=== PATIENT | male | born 1980 | race Caucasian/White ===

== ENCOUNTER 2016-06-20 19:54 | Emergency (ER) | payer BC ==
[2016-06-20] MEDS ORDERED: traMADol 50 MG Tab PO ONE (21:10)
[2016-06-20 21:27] VITALS: BP 154/108
--- NOTE | 2016-06-21 03:30 | ER ---
DATE SEEN: 06/20/2016 REASON FOR VISIT: Left foot pain. HISTORY OF PRESENT ILLNESS: This is a 36-year-old male, who was jumping into a pool, complains that he stepped the left foot and now he is unable to bend it and complains of pain at the top of the foot, especially around the 4th metacarpal metatarsal. Moderate pain with no radiation. REVIEW OF SYSTEMS: No other injuries were sustained. ALLERGIES: Penicillin. PHYSICAL EXAMINATION: VITAL SIGNS: Blood pressure is 154/110, pulse is 73, and temp 97.6. MUSCULOSKELETAL: Left foot showed mild swelling of the dorsum, swelling of the left 4th phalanx, and exquisite tenderness to palpation of the mid foot. Peripheral pulses, however, present and palpable. IMAGING: X-ray: I reviewed the x-ray myself twice. I did not see any overt fracture or dislocation. IMPRESSION: Left foot pain. PLAN: May use ibuprofen and Tylenol as needed. I gave him a prescription for tramadol 50 mg t.i.d. p.r.n. Advised him to elevate, ice it, and rest it and then see PCP tomorrow or come and see Dr. Nettles here on Friday. The official report of the x-ray will be available tomorrow. Time seen was 8 o'clock. I also advised him on vidya taping and hard soled shoe. He stated that he already has 2 boots and was not interested in our CAM walker. /[id number] PAWEL/STACEY
--- NOTE | 2016-06-24 12:34 | CR ---
INDICATION: Fall. LEFT FOOT: Three views of the left foot revealed suggestion of soft tissue swelling overlying the dorsum of the foot at the level of the distal metatarsals. A definite fracture or dislocation was not identified. There is some very minimal degenerative change at the first metatarsophalangeal joint and also at the DIP joint of the 4th toe. No other bone or joint abnormality was suggested. IMPRESSION: No acute fracture or dislocation. MTDD
== END 2016-06-20 21:15 | disposition home or self-care (01) ==
LOC: FB.ED 19:54
DX: M79.672 Pain in left foot (principal); Z88.0 Allergy status to penicillin
CPT/HCPCS: 73630-LT; 99283; A9270-GY